=== PATIENT | female | born 1965 ===

== ENCOUNTER 2021-04-29 05:38 | Day surgery (SDC) | payer OTHER ==
[~2021-04-29 05:38] MED LIST: FIORICET PO; PREMARIN0.45 MG PO
== END 2021-04-29 12:25 | disposition home or self-care (01) ==
LOC: CIR.AMB 05:38
PROVIDERS: ATTEND Specialist
DX: D17.0 Benign lipomatous neoplasm of skin and subcutaneous tissue of head, face and neck (principal)